=== PATIENT | male | born 1975 | race Caucasian/White ===

== ENCOUNTER 2022-03-07 10:53 | Outpatient (REF) | payer MEDICAID, SELFPAY ==
[2022-03-07 13:39] LABS: Abs Immature Grans 0.03 10^3/uL (0.0-0.06); Absolute Basophil Count 0.04 10^3/uL (0.0-0.2); Absolute Eosinophil Count 0.06 10^3/uL (0.0-0.7); Absolute Lymphocyte Count 1.26 10^3/uL (1.2-3.4); Absolute Neutrophil Count 5.08 10^3/uL (1.2-6.7); Basophils % 0.6; Eosinophils % 0.8; HCT 40.7 % (40.0-50.0); HGB 13.2 g/dL (13.5-17.5); Immature Grans % 0.4; Lymphocytes % 17.3; MCH 28.4 pg (27.0-33.0); MCHC 32.4 % (32.0-36.0); MCV 88 fL (80-95); MPV 10.4 fL (8.0-11.0); Neutrophils % 69.9; Platelet Count 308 10^3/uL (130-400); RBC 4.65 10^6/uL (4.36-5.78); RDW 11.6 % (11.8-14.1); RDW-SD 37.5 fL; WBC 7.27 10^3/uL (4.4-10.8)
[2022-03-07 13:47] LABS: Bilirubin Negative (Negative); Blood Negative (Negative); Clarity Cloudy (Clear); Glucose Negative (Negative); Ketones Negative (Negative); Leukocyte Esterase Trace (Negative); Nitrite Negative (Negative); Specific Gravity >= 1.030 (1.005-1.025); Urobilinogen 0.2 EU/dL (Up TO 0.2)
[2022-03-07 13:50] LABS: ALT 23 U/L (16-63); AST 14 U/L (15-37); Albumin 3.8 g/dL (3.4-5.0); Alkaline Phosphatase 67 U/L (46-116); Anion Gap 7.4 mmol/L (3-11); BUN 30 mg/dL (7-18); Bilirubin, Total 0.3 mg/dL (0.2-1.0); CO2 28.6 mmol/L (21.0-32.0); CREATININE 0.8 mg/dL (0.70-1.30); Calcium 8.9 mg/dL (8.5-10.1); Chloride 104 mmol/L (98-107); Estimated GFR 111.92 (mL/min/1.73m2); Glucose 95 mg/dL (74-106); Potassium 4.4 mmol/L (3.5-5.1); Sodium 140 mmol/L (136-145); Total Protein 6.9 g/dL (6.4-8.2)
[2022-03-07 14:10] LABS: Bacteria Negative HPF (Negative); C & S Indicated? Yes; Casts Negative LPF (Negative); Crystals Many Amorphous HPF (Negative); Epithelial Cells Rare HPF (Negative); Mucus Negative (Negative); RBC Negative HPF (0-2); WBC 0-2 HPF (0-5)
== END 2022-03-07 10:54 | disposition home or self-care (01) ==
LOC: LBN 10:53
PROVIDERS: Visit Provider Nurse Practitioner Family
DX: R10.31 Right lower quadrant pain (principal); R39.89 Other symptoms and signs involving the genitourinary system
CPT/HCPCS: 80053; 87077; 81003; 81015; 85025; 87086; 87186

== ENCOUNTER → 2022-03-09 01:30 | Outpatient (CLI) | payer MEDICAID, SELFPAY ==
--- NOTE | 2022-03-09 08:00 | DI.US_ITS ---
Exam(s) US RENAL EXAM: US RENAL CLINICAL HISTORY: evaluate etiology; r/o renal stone,low abd pain, dysuria. TECHNIQUE: Reyez scale, color and spectral Doppler were used. COMPARISON: No exams were available for comparison FINDINGS: Renal size in cm: Right: High 12.6 left: 10.5 Echogenicity: Normal Hydronephrosis: Mild left hydronephrosis. Cyst or mass: No Nephrolithiasis: No Bladder:Not well evaluated. Mildly distended with a pre void volume of 59 cc. Postvoid vol:15 cc Prostate volume 15 cc. IMPRESSION: Mild left hydronephrosis. CT could be performed for further evaluation. DATA REPOSITORY:
== END ==
PROVIDERS: Visit Provider Nurse Practitioner Family
DX: R10.30 Lower abdominal pain, unspecified (principal); R30.0 Dysuria; N13.30 Unspecified hydronephrosis
CPT/HCPCS: 76770

== ENCOUNTER → 2022-05-02 01:43 | Outpatient (CLI) | payer MEDICAID, SELFPAY ==
--- NOTE | 2022-05-02 07:45 | DI.CT_ITS ---
Exam(s) CT ABDOMEN PELVIS WO/W EXAM: CT ABDOMEN PELVIS WO/W TECHNIQUE: Imaging Protocol: Axial computed tomography images with coronal and sagittal reformatted images were created and reviewed. Images were performed from the lung bases through the ischial tuberosities before IV contrast and fol lowing IV contrast using a 70 second delay, followed by 7 minutes delayed images. CONTRAST MATERIAL: Intravenous: Omnipaque 350 Contrast volume:100 cc Oral: no COMPARISON: US US RENAL from 03/09/2022 FINDINGS: ABDOMEN: Lung Bases: Normal where visualized. The heart is partially included on the exam and there is a ques tion left ventricular dilatation. Liver: Normal density. No measurable mass. Gallbladder and biliary tract: No radiodense calculus or dilation. Pancreas: Normal density, no abnormal calcifications or inflammatory process. Spleen: Normal size. Small accessory spleen. Multiple solid lesions are noted which could represent hemangiomas. Kidneys: Normal size, contour and axis. Symmetric nephrograms. No perinephric collection. No radio dense stones or obstructive uropathy. No suspicious masses seen. Small parapelvic cysts left kidney s imulating hydronephrosis on prior ultrasound. Renal pelves and ureters are symmetric on urogram phas e images. Adrenal glands: No masses seen. Lymph nodes: Within normal limits. Abdominal Aorta: Abdominal portion non-dilated. Soft tissues: Small fatty containing umbilical hernia. PELVIS: Bladder: Mild diffuse wall thickening. No evidence of a mass.Single calcification noted in the anteri or bladder wall. Bowel: No obstruction or bowel wall thickening. Appendix normal. Peritoneal cavity: No ascites, collection or mesenteric inflammatory response. Soft tissues: Bones: Degenerative disc changes at L5-S1. Reproductive organs: Unremarkable for age.. IMPRESSION: 1. No evidence of hydronephrosis. Findings and ultrasound secondary to small parapelvic cysts. 2. Mild diffuse bladder thickening. Prostate not enlarged. 3. Multiple splenic lesions could represent hemangiomas. Metastatic disease could be considered ho wever there is no evidence of liver lesions, adenopathy or other suspicious lesions elsewhere. 4. Dilated IVC and question of cardiac dilatation. RADIATION DOSE DELIVERED: 2,183.4mGy.cm Total DLP DATA REPOSITORY: All CT scans at this facility are submitted to the National Radiology Data Registry (NRDR) Dose Index Registry (DIR) with the [employer] ([employer]). RADIATION OPTIMIZATION: All CT scans at this facility use at least one of these dose optimization te chniques: automated exposure control; mA and/or kV adjustment per patient size (includes targeted exa ms where dose is matched to clinical indication); or iterative reconstruction.
[2022-05-02] MEDS: Omnipaque 350 MG/ML 500 ML BTL-Imaging package IJ (13:10)
[2022-05-02] MEDS: Normal Saline Flush 10 ML SYR IVP (13:20)
== END ==
PROVIDERS: Visit Provider Urology
DX: R31.0 Gross hematuria (principal); N13.30 Unspecified hydronephrosis; D73.89 Other diseases of spleen; K42.9 Umbilical hernia without obstruction or gangrene; N32.89 Other specified disorders of bladder
CPT/HCPCS: 74178

== ENCOUNTER 2023-11-23 08:20 | Emergency (ER) | payer MEDICAID, SELFPAY ==
[2023-11-23] VITALS (27 sets, daily range): BP systolic 123–137; BP diastolic 72–84; PULSE 61–78; RESP 9–20; TEMP 36.5–37.3; O2SAT 95–100
--- NOTE | 2023-11-23 08:15 | RT.EKG_ITS ---
APPROVED REPORT Exam: Resting ECG Reason for Exam: SOB Patient Location: E HR:68 bpm ECG Measurements Heart Rate 68 AXIS TN 195 P 70 QRSd 84 QRS 46 QT 428 T 31 QTc 455 Conclusion Sinus rhythm...normal P axis, V-rate 60- 99 Probable left ventricular hypertrophy...multiple LVH criteria
--- NOTE | 2023-11-23 08:31 | ED.GENADUL_ITS ---
Discharge Plan Disposition Patient Disposition: Home Condition: Stable Discharge Details Clinical Impression: Reactive airway disease Primary Care Provider: Unknown,Unknown ED Provider: Arnav Staples Home Meds and New Rx's Prescriptions: New prednisone 20 mg tablet 40 mg PO DAILY 5 Days Qty: 10 0RF azithromycin 250 mg tablet 250 mg PO DAILY 4 Days Qty: 4 0RF Rx Instructions: start on day 2 of therapy Continued albuterol sulfate [Proventil HFA] 90 mcg/actuation HFA aerosol inhaler 2 puff inhalation Q6H PRN (Reason: shortness of breath or wheezing) Qty: 8.5 0RF Discharge Instructions Instructions: Asthma in adults, Environmental allergies in adults, Azithromycin (Systemic), Atypical Pneumonia (Mycoplasma and Viral) (DC), Prednisone Additional Instructions: You were seen in the emergency department for your likely reactive airway disea se, this may be an asthma exacerbation or an atypical pneumonia frequently referred to as walking pneumonia. This also could be allergy exacerbation. Your workup is negative for any cardiac cause, negative for any blood clot in the lungs, there is no focal pneumonia seen on your chest x-ray and your labs are negative for markers of severe infection. Your oxygen saturation was 100% here in the emergency department, you have an adequate rescue inhaler, your blood gas shows respiratory alkalosis likely from hyperventilation and possible mild overuse of your inhaler. We provided you with magnesium via IV today which is a bronchodilator, I also loaded you with steroids in your IV and started you on a course of azithromycin which is an antibiotic that treats atypical pneumonias as well as has separate anti-inflammatory effects within the lung tissue. I have sent continuance of steroids and azithromycin to [facility] in [place], start these medicines tomorrow. Please take regular doses of an [id number] nondrowsy allergy medicine like Claritin or Zyrtec or Susan over the next few days as well. Please return to the emergency department for increasing respiratory distress, chest pain, near syncope or dizziness, fever, nausea vomiting, weakness. Discharge Data Discharge Date/Time-TO BE ENTERED AT DEPARTURE: 11/23/23 11:28 HPI General Date/Time Provider Initiated Documentation: 11/23/23 08:21 . HPI Narrative: 48 year-old male presents to ED today by POV/ambulating with a chief complaint of about a weeks' worth of shortness of breath, chest tightness, equates the onset of symptoms with possible dog allergies after visiting a friends house with dogs just prior to onset- states severe chest tightness over the last 5 nights, last night being the worst, with inhaler use after [facility] visit days ago. Patient endorses childhood asthma and usually gets pretty bad allergies for about a week each spring. Patient is a non-smoker. Quality described as chest tightness, denies overt wheezing, denies chest pain/palpitations, no radiation to fever, productive cough, nausea, syncope, confusion, abdominal pain. Severity is described as severe. Palliating factors include rescue inhaler use 5x last night and 4x just prior to arrival. Provoking factors include nothing specific- has environmental allergies. Patient not anticoagulated. Related Data Home Medications Medication Instructions Recorded Confirmed albuterol sulfate 90 mcg/actuation 2 puff inhalation Q6H PRN 10/09/23 11/23/23 aerosol inhaler (Proventil HFA) shortness of breath or wheezing #8.5 grams azithromycin 250 mg tablet 250 mg PO DAILY 4 days #4 tabs 11/23/23 prednisone 20 mg tablet 40 mg (2 x 20 mg) PO DAILY 11/23/23 reactive airway disease 5 days #10 tabs Previous Rx's Medication Instructions Recorded albuterol sulfate 90 mcg/actuation 2 puff inhalation Q6H PRN 10/09/23 aerosol inhaler (Proventil HFA) shortness of breath or wheezing #8.5 grams azithromycin 250 mg tablet 250 mg PO DAILY 4 days #4 tabs 11/23/23 prednisone 20 mg tablet 40 mg (2 x 20 mg) PO DAILY 11/23/23 reactive airway disease 5 days #10 tabs Allergies Allergy/AdvReac Type Severity Reaction Status Date / Time Penicillins Allergy Hives Verified 11/23/23 08:42 shell fish AdvReac Severe Anaphylaxis Uncoded 11/23/23 08:43 General Stated Complaint: SOB LAITH: 3 Review of Systems All systems reviewed & are unremarkable except as noted in HPI and below Exam Narrative Exam Narrative: GENERAL APPEARANCE: Well-nourished, non-toxic, awake and alert, atraumatic, no acute distress. SKIN: Warm, pink, dry, intact, without rashes/lesions/ulcerations. HEAD: Normocephalic, atraumatic, normal hair distribution for gender/age. EYES: Pupils PERRLA, EOMs intact without nystagmus, normal conjunctiva, no exudates on lids/lashes. ENT: Nares patent, no circumoral cyanosis, no facial swelling NECK: Supple, trachea midline, painless cervical ROM. LUNGS/CHEST: Lungs CTA bilaterally, non-labored respirations, normal A/P diameter, symmetrical expansion, no chest wall deformity HEART (CV/PV): Regular rate and rhythm without murmur, no peripheral edema, no JVD. ABDOMEN: Soft, non-distended, no guarding. MSK: Normal ROM, no swelling/deformity to bilateral UEs or LEs, moving all extremities without weakness, no cyanosis, spine midline without tenderness, normal curvature. NEURO: Mental Status AAOx4 - alert to person, place, time, events No facial droop, no forehead involvement. Motor: No focal weakness - strength 5/5 in bilateral UEs and LEs, proximal and distal, symmetric. Sensory: sensation intact to light touch globally. Gait normal: patient ambulated without ataxia into ED room. PSYCH: euthymic, cooperative, pleasant, appropriate speech Course Vital Signs Vital signs: Vital Signs Temperature 37.3 C 11/23/23 08:22 Pulse 78 11/23/23 08:22 Respiratory Rate 13 11/23/23 08:22 Blood Pressure 133/84 11/23/23 08:22 Pulse Oximetry 100 11/23/23 08:22 Temperature 37.3 C 11/23/23 08:28 Temperature Source Temporal Artery Scan 11/23/23 08:28 Pulse 78 11/23/23 08:28 Respiratory Rate 13 11/23/23 08:28 Respiratory Effort Normal, Short of Breath 11/23/23 08:28 Blood Pressure 133/84 11/23/23 08:28 Blood Pressure Position Sitting 11/23/23 08:28 Pulse Oximetry 100 11/23/23 08:28 Oxygen Delivery Method Room Air 11/23/23 08:28 Oxygen Flow Rate 0 11/23/23 08:28 Pain Level 0 11/23/23 08:28 Medical Decision Making This dictation utilizes [id number] dictation software and may contain unedited grammatical errors. 48 year-old male presents to ED today by POV/ambulating with a chief complaint of about a weeks' worth of shortness of breath, chest tightness, equates the onset of symptoms with possible dog allergies after visiting a friends house with dogs just prior to onset- states severe chest tightness over the last 5 nights, last night being the worst, with inhaler use after [facility] visit days ago. Patient endorses childhood asthma and usually gets pretty bad allergies for about a week each spring. Patient is a non-smoker. Quality described as chest tightness, denies overt wheezing, denies chest pain/palpitations, no radiation to fever, productive cough, nausea, syncope, confusion, abdominal pain. Severity is described as severe. Palliating factors include rescue inhaler use 5x last night and 4x just prior to arrival. Provoking factors include nothing specific- has environmental allergies. Patients' medical history: environmental allergies. Family and social history: non-smoker, exercises, eats well, doesn't do drugs. Pertinent exam findings / vital signs include benign cardiopulmonary exam without wheezing, benign abdomen, nontoxic vitals, no hypoxia. Differential / pathologies of concern include asthma exacerbation, environmental allergies, walking pneumonia, PE, ACS. Diagnostic studies of: -CBC, CMP, lactate, procalcitonin, CRP, lipase, troponin I, magnesium, VBG, D- dimer, EKG, XR Chest. -CBC shows no leukocytosis, no abnormalities -CMP shows mildly elevated BUN with normal creatinine -CRP 0.97 mildly elevated -D-dimer negative, do not suspect PE, no tachycardia-Wells score low -Troponin negative with reliable onset -Lipase negative -Magnesium within normal limits -Lactate 2.0, procalcitonin negative, suspect element of dehydration with the patient's elevated BUN- will give IV fluids -VBG shows respiratory alkalosis likely due to hyperventilation and excessive inhaler use -EKG shows sinus rhythm at 68 bpm, P waves followed by narrow complex QRS with normal axis, slightly prolonged WV interval, normal QT QTc, some anterior ST elevations likely early repolarization, LVH voltage criteria -CXR shows no acute CP process. Interventions of: -1L IVF NS, IV 1gm Magnesium, IV steroids, Azithromycin PO 500mg, cetirizine 10mg PO, DuoNeb 3mL. ED Course/Assessment/Plan: 48-year-old male presents to the emergency department with about 5 days to 1.5 weeks of significant shortness of breath worse at nighttime, states that this all started when he presented to a friend's house who has dogs which she is allergic to. He has a childhood history of asthma, [facility] and was provided with an inhaler to go home with. He is overall nontoxic and in no acute respiratory distress here with stable vitals, his workup shows elevated lactate likely in the setting of mild dehydration, no leukocytosis. D-dimer is negative I do not suspect PE as had no tachycardia. His chest x-ray shows no focal pneumonia, I plan to treat him for reactive airway disease with a course of steroids, azithromycin and recommend [id number] allergy medications with strict return criteria for any worsening shortness of breath or chest pain. Findings not consistent with hypoxic respiratory failure, ACS, PE, focal PNA, sepsis. Disposition of Reactive Airway Disease. Patient verbalized understanding of the plan and return to ED criteria and engaged in shared decision making. Medical Records Medical records reviewed: Yes I reviewed the patient's medical records. Imaging Data Radiologic Study: Attestation: I personally reviewed and interpreted this imaging study as follows: Imaging: X-Ray Radiologist's impression: EXAM: XR CHEST 2V PA LATERAL CLINICAL HISTORY: SOB TECHNIQUE: 2D digital imaging was performed of the chest. Two images were obtained. PA and lateral views were obtained. COMPARISON: No exams were available for comparison FINDINGS: MEDIASTINUM: Normal. HEART: Normal. PULMONARY VASCULATURE: Normal. LUNGS: Clear. PLEURAL SPACE: No pleural effusion or pneumothorax. BONE:Within normal limits for the patient's age. OTHER FINDINGS:Normal. IMPRESSION: No acute pulmonary findings. Lab Data Lab results reviewed: Yes I reviewed the patient's lab results. Labs: Laboratory Tests Range/Units 11/23/23 08:43 WBC (4.4-10.8) 10^3/uL 6.75 RBC (4.36-5.78) 10^6/uL 5.14 Hgb (13.5-17.5) g/dL 14.8 Hct (40.0-50.0) % 43.5 MCV (80-95) fL 85 MCH (27.0-33.0) pg 28.8 MCHC (32.0-36.0) % 34.0 RDW (11.8-14.1) % 12.0 Plt Count (130-400) 10^3/uL 279 MPV (8.0-11.0) fL 10.6 Immature Gran % % 0.3 Neutrophils % % 58.2 Lymphocytes % % 26.5 Monocytes % % 11.1 Eosinophils % % 3.0 Basophils % % 0.9 Nucleated RBC % (0.0-0.3) % 0.0 Absolute Neutrophils (1.2-6.7) 10^3/uL 3.93 Absolute Lymphocytes (1.2-3.4) 10^3/uL 1.79 Absolute Monocytes (0.1-0.8) 10^3/uL 0.75 Absolute Eosinophils (0.0-0.7) 10^3/uL 0.20 Absolute Basophils (0.0-0.2) 10^3/uL 0.06 D-Dimer (<500) ng/mlFEU 258 VBG pH (7.31-7.41) 7.55 H VBG pCO2 (41-51) mmHg 34 L VBG pO2 mmHg 28 VBG HCO3 (23-28) mmol/L 30 H VBG Total CO2 (24-29) mmol/L 26 VBG O2 Saturation % 61 VBG Base Excess (-2-3) mmol/L 7 H VBG Lactate (0.6-1.4) mmol/L 2.0 H Sodium (136-145) mmol/L 140 Potassium (3.5-5.1) mmol/L 4.1 Chloride (98-107) mmol/L 102 Carbon Dioxide (21.0-32.0) mmol/L 30.1 Anion Gap (3-11) mmol/L 7.9 BUN (7-18) mg/dL 26 H Creatinine (0.70-1.30) mg/dL 1.0 Est GFR (CKD-EPI 2020) (mL/min/1.73m2) 94.00 Glucose (74-106) mg/dL 104 Calcium (8.5-10.1) mg/dL 9.3 Magnesium (1.8-2.4) mg/dL 1.9 Total Bilirubin (0.2-1.0) mg/dL 0.86 AST (15-37) U/L 27 ALT (16-63) U/L 36 Alkaline Phosphatase (46-116) U/L 60 Troponin I (< or =60) ng/L < 50 C-Reactive Protein (<or=0.5) mg/dL 0.97 H Total Protein (6.4-8.2) g/dL 7.4 Albumin (3.4-5.0) g/dL 4.2 Lipase (16-77) U/L 42 Procalcitonin ng/mL 0.1 Quality:SDOH Health Related Social Needs: No Data to Display PFSH All Active Problems (Updated 11/23/23 @ 10:37 by CATHERINE Cotter) Reactive airway disease (Acute) Hydronephrosis, left (Acute) Social History Smoking/Tobacco Use Status: Never Smoking risk assessment performed?: Yes Alcohol Intake: current Alcohol Intake frequency: holidays/special occasions only Alcohol type: beer Drug use: Never Substance use type: does not use Housing: house [facility] Have you Been Recently Intoxicated or Drunk Within the Last 30 days?: No Have you Ever Experienced Previous Episodes of Alcohol Withdrawal?: No Have you ever Experienced Withdrawal Seizures?: No Have you ever Experienced Delirium Tremens(DT)s?: No Have you ever undergone Alcohol Rehabilitation Treatment (i.e, inpt ot outpatient treatment programs)?: No Have you ever Experienced Blackouts?: No Have you ever Combined Alcohol with other Downers within the last 90 days?: No Have you ever Combined Alcohol with any other Substance of Abuse during the last 90 days?: No Result: 0
[2023-11-23 08:55] LABS: BE (Venous) 7 mmol/L (-2-3); HCO3 (Venous) 30 mmol/L (23-28); O2 Sat (Venous) 61 %; TCO2 (Venous) 26 mmol/L (24-29); pCO2 (Venous) 34 mmHg (41-51); pH (Venous) 7.55 (7.31-7.41); pO2 (Venous) 28 mmHg
[2023-11-23 08:56] LABS: Abs Immature Grans 0.02 10^3/uL (0.0-0.06); Absolute Basophil Count 0.06 10^3/uL (0.0-0.2); Absolute Lymphocyte Count 1.79 10^3/uL (1.2-3.4); Absolute Monocyte Count 0.75 10^3/uL (0.1-0.8); Absolute Neutrophil Count 3.93 10^3/uL (1.2-6.7); Basophils % 0.9 %; HCT 43.5 % (40.0-50.0); HGB 14.8 g/dL (13.5-17.5); Immature Grans % 0.3 %; Lymphocytes % 26.5 %; MCH 28.8 pg (27.0-33.0); MCV 85 fL (80-95); MPV 10.6 fL (8.0-11.0); Monocytes % 11.1 %; Neutrophils % 58.2 %; Platelet Count 279 10^3/uL (130-400); RBC 5.14 10^6/uL (4.36-5.78); RDW-SD 37.1 fL; WBC 6.75 10^3/uL (4.4-10.8)
[2023-11-23 09:18] LABS: ALT 36 U/L (16-63); AST 27 U/L (15-37); Albumin 4.2 g/dL (3.4-5.0); Alkaline Phosphatase 60 U/L (46-116); Anion Gap 7.9 mmol/L (3-11); BUN 26 mg/dL (7-18); Bilirubin, Total 0.86 mg/dL (0.2-1.0); C-Reactive Protein 0.97 mg/dL (<or=0.5); CO2 30.1 mmol/L (21.0-32.0); Calcium 9.3 mg/dL (8.5-10.1); Chloride 102 mmol/L (98-107); Glucose 104 mg/dL (74-106); Lipase 42 U/L (16-77); Magnesium 1.9 mg/dL (1.8-2.4); Potassium 4.1 mmol/L (3.5-5.1); Sodium 140 mmol/L (136-145); Total Protein 7.4 g/dL (6.4-8.2); Troponin I < 50 ng/L (< or =60)
[2023-11-23 09:26] LABS: D-Dimer 258 ng/mlFEU (<500)
--- NOTE | 2023-11-23 09:30 | DI.RAD_ITS ---
Exam(s) XR CHEST 2V PA LATERAL EXAM: XR CHEST 2V PA LATERAL CLINICAL HISTORY: SOB TECHNIQUE: 2D digital imaging was performed of the chest. Two images were obtained. PA and lateral views were obtained. COMPARISON: No exams were available for comparison FINDINGS: MEDIASTINUM: Normal. HEART: Normal. PULMONARY VASCULATURE: Normal. LUNGS: Clear. PLEURAL SPACE: No pleural effusion or pneumothorax. BONE:Within normal limits for the patient's age. OTHER FINDINGS:Normal. IMPRESSION: No acute pulmonary findings. DATA REPOSITORY: RADIATION DOSE DELIVERED:
[2023-11-23 09:39] LABS: Procalcitonin 0.1 ng/mL
[2023-11-23] MEDS: Normal Saline 1,000 ML 1000 ML IV (09:55)
[2023-11-23] MEDS: methylPREDNISolone SUCC 125 MG VIAL IVP (10:43)
[2023-11-23] MEDS: MAGNESIUM SULFATE 1 GM/100 ML BAG IVINF (10:44)
[2023-11-23] MEDS: Azithromycin 250 MG TAB 500 MG PO (10:46)
[2023-11-23] MEDS: Cetirizine 10 MG TAB PO (10:47)
[2023-11-23] MEDS: Albuterol/Ipratropium 3 ML UPD VIAL UPD (11:10)
--- NOTE | 2023-11-27 13:08 | NUR.NOTE ---
Accessed chart to see if an EKG had been done pt. Nursing Note:
== END 2023-11-23 11:28 | disposition home or self-care (01) ==
PROVIDERS: Emergency Provider Physician Assistant
DX: J45.901 Unspecified asthma with (acute) exacerbation (principal)
CPT/HCPCS: 80053; 82805; 83690; 84145; 93005; 96361; 96365; 96375; 99285; 71046; 83605; 83735; 84484; 85025; 85379; 86140; 93010; J2919; J3475; J7620

== ENCOUNTER 2024-08-12 15:44 | Outpatient (CLI) | payer MEDICAID, SELFPAY ==
--- NOTE | 2024-08-12 15:30 | RT.EKG_ITS ---
APPROVED REPORT Exam: Resting ECG Reason for Exam: Chest discomfort Patient Location: O HR:66 bpm ECG Measurements Heart Rate 66 AXIS MI 191 P 62 QRSd 89 QRS 50 QT 401 T 38 QTc 421 Conclusion Sinus rhythm...normal P axis, V-rate 50- 99 Left ventricular hypertrophy...multiple voltage criteria ST elev, probable normal early repol pattern...ST elevation, age<55
== END 2024-08-12 15:45 | disposition home or self-care (01) ==
LOC: DI.CM 15:44
PROVIDERS: Visit Provider Physician Assistant
DX: R07.9 Chest pain, unspecified (principal)
CPT/HCPCS: 93010

== ENCOUNTER 2024-11-06 00:58 | Outpatient (CLI) | payer MEDICAID, SELFPAY ==
--- NOTE | 2024-11-06 06:15 | DI.US_ITS ---
APPROVED REPORT EXAM: Comprehensive 2D, Doppler, and color-flow Echocardiogram Patient Location: Out-Patient Senior Resident Care Director: Mikaela Brooks RDCS (AE) Indications: Chest pain, left ventricular hypertrophy Other Information Study Quality: Good Conclusion Normal left ventricular wall thickness and chamber size. Ejection fraction is 60 to 65%. Wall motio n is normal Normal right ventricular size and function Both atria are normal in size There is no structural or hemodynamically significant valvular disease Estimated right ventricular systolic pressure is 25 mmHg Ascending aorta measures 3.71 cm Wall motion Left Ventricle The left ventricle is normal size. The left ventricular systolic function is normal. The left ventric ular ejection fraction is within the normal range. There is normal left ventricular wall thickness. T here is normal LV segmental wall motion. There is no ventricular septal defect visualized. LVEF is 60 -65%. Right Ventricle The right ventricle is normal size. The right ventricular systolic function is normal. Atria The left atrium size is normal. The right atrium size is normal. The interatrial septum is intact wi th no evidence for an atrial septal defect. Aortic Valve The aortic valve is normal in structure. Aortic valve is trileaflet. There is no aortic valvular sten osis. No aortic regurgitation is present. Mitral Valve The mitral valve is normal in structure. No evidence of mitral valve stenosis. Trace mitral regurgita tion. Tricuspid Valve The tricuspid valve is normal in structure. There is no tricuspid valve stenosis. Mild tricuspid regu rgitation. The RVSP is 25.3_ mmHg. Pulmonic Valve The pulmonary valve is normal in structure. There is no pulmonic valvular stenosis. There is no pulmo marquita valvular regurgitation. Great Vessels The aortic root is normal in size. The ascending aorta is mildly dilated. Aortic arch is normal in ca liber. IVC is normal in size and collapses >50% with inspiration. Pericardium There is no pericardial effusion. 2D Dimensions IVSD d PLAX 0.90 cm M: 0.6-1.2 Ao Root d 3.41 cm M: 3.1 - 3.7 LVPW d PLAX 0.92 cm M: 0.6 - 1.2 Ao Asc Diam d 3.71 cm M: 2.6 - 3.4 LVID d PLAX 5.20 cm M: 4.2 - 5.8 LVDs 3.32 cm M: 2.5 - 4.0 LV EF Teichholz 65.3 % FS 36.07 % LV EDV (Teich) 129.1 mL LV ESV (Teich) 44.8 mL M-Mode TAPSE 2.67 cm (M/F) >1.7 Auto EF LV EDV A4C 120.5 mL LV EDV A2C 167.5 mL LV EDV BP 142.3 mL LV ESV A4C 49.8 mL LV ESV A2C 59.2 mL LV ESV BP 54.2 mL LVEF(%) A4C 58.7 % LVEF(%) A2C 64.7 % LVEF(%) BP 61.9 % LV SV A4C 70.7 ml LV SV A2C 108.4 ml LV SV BP 88.1 ml LV CO A4C 5.3 L/min LV CO A2C 8.0 L/min LV CO BP 6.6 L/min HR A4C 75.00 BPM HR A2C 73.47 BPM LV EDV Index (BP) LA Volume LA Length A4C 5.4 cm LA Length A2C 5.9 cm LA Area A4C s 20.36 cm2 LA Area A2C s 22.43 cm2 LA Vol A4C A-L 64.71 mL LA Vol A2C A-L 72.44 mL LA Vol Biplane A-L 71.3 mL LA Vol/BSA A4C A-L LA Vol/BSA A2C A-L LA Vol/BSA BP A-L 37.3 mL/m2 LA Vol A4C MOD 59.0 mL LA Vol A2C MOD 68.9 mL LA Vol BP MOD 66.0 mL RA Volume RA Area A4C 18.8 cm2 RA ESV A4C (A-L) 58.8mL RA Vol/BSA A4C A-L RA Length A4C 5.1 cm RA ESV A4C (MOD) 56.5mL LV Diastology MV E' medial 0.103 (>0.07 m/s) MV E Vmax 0.55 (0.4-1.3 m/s) MV E/E' MED 5.35 (<14) MV A Vmax 0.50 (0.4-1.3 m/s) MV E' lateral 0.123 (>0.1 m/s) E/A Ratio 1.1 MV E/E' LAT 4.46 (<14) MV E' Average 0.113 m/s MV E/E'(average) 4.86 Aortic Valve AoV Vmax 1.65 m/s LVOT Vmax 1.44 m/s AoV Peak Grad 10.9 mmHg LVOT Peak Grad 8.3 mmHg AoV Area (Vmax) 3.05 cm2 LVOT VTI 0.279 m AoV VTI 0.325 m LVOT Mean Grad 4.1 mmHg AoV Mean Daniel. 1.07 m/s LVOT SV 97.35 mL AoV Mean Grad 5.3 mmHg LVOT Diam s 2.10 cm AoV Area (VTI) 2.99 cm2 AV Regurg Peak Gr. 10.89 mmHg Velocity Ratio 0.87 Mitral Valve MV DT 179 (160-240 msec) MV Vmax TIPS 0.62 m/s MV Mean Grad 0.8 (<2mmHg) MV VTI 0.184 m Pulmonary Valve PV Vmax 1.16 (0.5-1.5 m/s) RVOT Vmax 0.94 m/s PV Peak Grad 5.4 mmHg RVOT Peak Gr. 3.5 mmHg PV Mean Daniel 0.72 m/s RVOT VTI 0.193 m PV Mean Grad 2.5 mmHg RVOT Mean Gr. 1.6 mmHg Tricuspid Valve RA Pressure 3.00 mmHg TR Vmax 2.36 m/s TV S' 0.16 m/s TR Peak Grad 22.2 mmHg RVSP (TR) 25.3 mmHg
== END 2024-11-06 01:18 ==
LOC: DI 00:58
PROVIDERS: Visit Provider Internal Medicine Cardiovascular Disease
DX: R07.9 Chest pain, unspecified (principal)
CPT/HCPCS: 93306